=== PATIENT | female | born 1945 | race Caucasian/White ===

== ENCOUNTER 2017-02-02 07:31 | Inpatient (IN) | payer OTHER ==
[2017-01-06 13:26] VITALS: BMI 25.0
--- NOTE | 2017-01-06 14:01 | PAT Medication Instructions ---
Service Date Jan 06, 2017. Current Home Medication List Calcium Carbonate (Caltrate 600), 1 TAB PO QAM Hydrochlorothiazide (Hydrochlorothiazide), 25 MG PO QAM Meloxicam (Mobic), 15 MG PO QAM Multiple Vitamins W/ Minerals (Alive Once Daily Womens U), 1 TAB PO QAM Simvastatin (Zocor), 40 MG PO QPM Medication Instructions For Your Scheduled Surgery - Hold the following medications 7 days prior to surgery per surgeon's instructions: Meloxicam (Mobic), 15 MG PO QAM - Hold the following medications the morning of surgery: Multiple Vitamins W/ Minerals (Alive Once Daily Womens U), 1 TAB PO QAM Calcium Carbonate (Caltrate 600), 1 TAB PO QAM Hydrochlorothiazide (Hydrochlorothiazide), 25 MG PO QAM - Take the following medications the morning of surgery with a sip of water OTHERWISE NOTHING TO EAT OR DRINK AFTER MIDNIGHT: Tylenol (may take if needed up to 4 hours prior to surgery) - Take the following medications as scheduled the night before surgery: Simvastatin (Zocor), 40 MG PO QPM Tylenol If you have any questions please call us at [phone] or [phone] or [phone]
--- NOTE | 2017-01-06 14:33 | DIAGNOSTIC IMAGING REPORT ---
CHEST 2 VIEWS ROUTINE CLINICAL HISTORY: pat preoperative evaluation COMPARISON STUDY: No previous studies for comparison. FINDINGS: The bones soft tissues and hemidiaphragms are normal. The cardiomediastinal silhouette is normal. The lungs are clear. The pulmonary vasculature is normal. IMPRESSION: Negative chest. The above report was generated using voice recognition software. It may contain grammatical, syntax or spelling errors. Electronically signed by: John March M.D. 01/06/2017 2:32 PM Dictated Date/Time: 01/06/2017 2:31 PM
[2017-01-06 14:57] LABS: BASO % 0.5 %; BASO ABS # 0.04 K/uL (0-0.2); COMPLETE YES; EOS % 4.2 %; HEMATOCRIT 40.4 % (37-47); IG% 0.2 %; LYMPH % 29.9 %; LYMPH ABS # 2.62 K/uL (1.2-3.4); MEAN CELL VOLUME 90.4 fL (80-100); MEAN CORPUSCULAR HEMOGLOBIN 31.5 pg (25-34); MEAN CORPUSCULAR HGB CONC 34.9 g/dl (32-36); MONO % 7.1 %; NEUT % 58.1 %; PLATELET COUNT 296 K/uL (130-400); RED BLOOD COUNT 4.47 M/uL (4.2-5.4); URINE APPEARANCE CLEAR (CLEAR); URINE BILIRUBIN NEG (NEG); URINE COLOR YELLOW; URINE NITRITE NEG (NEG); URINE SPECIFIC GRAVITY 1.017 (1.000-1.030); UROBILINOGEN NEG (NEG); WHITE BLOOD COUNT 8.75 K/uL (4.8-10.8); ZZUR CULT IF INDIC CLEAN CATCH NO
[2017-01-06 14:58] LABS: MANUAL MICROSCOPIC REQUIRED? NO; REVIEW REQ? NO
[2017-01-06 15:10] LABS: PROTHROMBIN TIME (PATIENT) 10.4 SECONDS (9.0-12.0)
[2017-01-06 16:01] LABS: BUN/CREATININE RATIO 15.5 (10-20); CALCIUM 9.5 mg/dl (8.5-10.1); CREATININE 0.84 mg/dl (0.60-1.20); POTASSIUM 3.7 mmol/L (3.5-5.1)
[2017-01-07 06:58] LABS: ESTIMATED AVERAGE GLUCOSE 137 mg/dl; HA1C FLAG Normal (Normal)
--- NOTE | 2017-02-01 18:25 | HISTORY & PHYSICAL EXAMINATION ---
DATE OF ADMISSION: 02/02/2017 CHIEF COMPLAINT: Chronic left knee pain. HISTORY OF PRESENT ILLNESS: This is a 71-year-old female patient of Dr. Smith'julianne complaining of chronic left knee pain, longstanding, now progressively getting worse. The patient has been diagnosed with end-stage osteoarthritis per clinical and radiographic exams. The patient has failed conservative treatment including intraarticular injections, anti-inflammatories and the use of a cane and a walker. The patient has increased pain with weightbearing activities and her pain does interfere with her activities of daily living. PAST MEDICAL HISTORY: Hypertension, hypercholesterolemia, and basal cell carcinoma. SOCIAL HISTORY: Nonsmoker, nondrinker. FAMILY HISTORY: Noncontributory. REVIEW OF SYSTEMS: Chronic left knee pain, otherwise denies any shortness of breath, chest pain, nausea, vomiting or any other joint complaints. MEDICATIONS: Simvastatin 40 mg daily, hydrochlorothiazide 25 mg daily, Meloxicam 50 mg daily, Aleve daily, Caltrate daily. PAST SURGICAL HISTORY: Breast tumor, , bunion, gallbladder, basal cell carcinoma, right knee and left knee. ALLERGIES: NAPROSYN, SULFA, PENICILLIN, VOLTAREN. PHYSICAL EXAMINATION: GENERAL: Well-developed, well-nourished 71-year-old female in no acute distress. She is alert and oriented x3 and pleasant. HEENT: Normocephalic, atraumatic. Extraocular motions are intact. Pupils are equal and reactive to light. HEART: Regular rate and rhythm with a 1/6 murmur appreciated. LUNGS: Clear. ABDOMEN: Soft and nontender, bowel sounds are present. EXTREMITIES: Left knee reveals crepitation with passive range of motion. She has a limited range of motion with negative 10, extension to 125 degrees of flexion. She has a varus deformity. She has medial joint line tenderness. She has 5/5 strength. NEUROLOGIC: Neurovascularly, she is intact in her left lower extremity. DIAGNOSES: Left knee end-stage osteoarthritis, hypertension, hypercholesterolemia, history of basal cell carcinoma. PLAN: The patient was advised of her diagnoses. Indications, risks, benefits, and postop course have all been reviewed. The patient wishes to proceed with a left total knee arthroplasty. Necessary consent forms, preoperative testing and clearances will be obtained.
[2017-02-02] VITALS (8 sets, daily range): BP systolic 114–159; BP diastolic 69–86; PULSE 85–101; TEMP 36.5–36.8; O2SAT 96–100; Ht 162.6 cm; Wt 68.2 kg
[~2017-02-02] VITALS: Ht 162.6 cm; Wt 68.2 kg
[~2017-02-02 07:31] MED LIST: ACETAMINOPHEN 500 MG TAB PO SCH; BUPIVACAINE 0.25% 30 ML VIAL ONE; BUPIVACAINE 0.5 % 5 MG/1 ML PF 10ML VIAL ONE; CALCTAB5 PO; DEXAMETHASONE 4 MG TAB PO SCH; EpINEphrine INJ 1MG/ML AMP 1 MG/ML AMP ONE; FAMOTIDINE 20 MG TAB PO SCH; GABAPENTIN 300 MG CAP PO SCH; HYDR25TA5 PO; LACTATED RINGER'S 1000ML 1,000 ML IV SCH; LACTATED RINGER'S 1000ML 500 ML IV ONE; LACTATED RINGER'S 1000ML IV SCH; MELO7.5T5 PO; METOCLOPRAMIDE HCL 10 MG TAB PO SCH; MULT-1044 PO; ROPIVACAINE 5MG/ML 30 ML 150 MG, BUPIVACAINE/EPINEPHR 0.5% MPF 30 ML, KETOROLAC TROMETH... INFIL SCH; SIMV40TA2 PO; VANCOMYCIN 1GM/270ML NSS 270 ML IV SCH
[2017-02-02] MEDS ORDERED: LIDOCAINE HCL 2% 2 ML VIAL (20MG/ML) ONE (07:39)
[2017-02-02] MEDS ORDERED: FENTANYL CITRATE INJ 50 MCG/1 ML 2 ML VIAL ONE (07:39)
[2017-02-02] MEDS ORDERED: MIDAZOLAM HCL 1 MG/ML 2ML VIAL ONE ×2 (07:39→09:56)
[2017-02-02] MEDS ORDERED: ONDANSETRON INJ 2 MG/ML 2 ML VIAL ONE (07:40)
[2017-02-02] MEDS ORDERED: PROPOFOL IV EMULSION 10 MG/ML 20 ML VIAL IV ONE ×2 (07:40→10:50)
[2017-02-02] MEDS ORDERED: EpHEDrine SULFATE INJ 50 MG/ML AMP IV PRN (08:15)
[2017-02-02] MEDS ORDERED: MEPERIDINE HCL 25 MG/ML CARP IV PRN (08:15)
[2017-02-02] MEDS ORDERED: LABETALOL HCL IV 5 MG/ML 20ML IV PRN (08:15)
[2017-02-02] MEDS ORDERED: PHENYLEPHRINE 100MCG/ML 5ML SYR IV PRN (08:15)
[2017-02-02] MEDS ORDERED: HYDROmorphone INJ 2 MG/ML SYR/VIAL IV PRN (08:15)
[2017-02-02] MEDS ORDERED: ONDANSETRON INJ 2 MG/ML 2 ML VIAL IV PRN ×2 (08:15→12:15)
[2017-02-02] MEDS ORDERED: FLUMAZENIL 0.1 MG/1 ML 10 ML VIAL IV PRN (08:15)
[2017-02-02] MEDS ORDERED: NALOXONE HCL 0.4 MG/1 ML VIAL/CARP IV PRN (08:15)
[2017-02-02] MEDS ORDERED: ATROPINE SULFATE 0.1 MG/ML 5ML SYR IV PRN (08:15)
[2017-02-02] MEDS ORDERED: FENTANYL CITRATE INJ 50 MCG/1 ML 2 ML VIAL IV PRN (08:15)
[2017-02-02] MEDS: TRANEXAMIC ACID INJ 1,000 MG in SODIUM CHLORIDE 0.9% 100ML 100 ML IV SCH ×2 (09:50→15:26)
--- NOTE | 2017-02-02 09:51 | History & Physical Bridge Note ---
H&P Re-Evaluation Bridge Note: I have examined the patient, reviewed the History & Physical and in the interval since the performance of the History & Physical I have noted the following changes of clinical significance: No changes noted
[2017-02-02] MEDS ORDERED: ORTHO JOINT ANESTHETIC ONE (09:53)
[2017-02-02] MEDS ORDERED: POVIDONE-IODINE OP SOLN 30 ML BTL ONE (09:53)
[2017-02-02] MEDS ORDERED: BACITRACIN 50000 UNIT VIAL ONE (09:53)
[2017-02-02] MEDS ORDERED: EpHEDrine SULFATE INJ 50 MG/ML AMP ONE (10:23)
[2017-02-02] MEDS ORDERED: SOD PHOSPHATE/SOD BIPHOSPHATE ENEMA 132 ML BTL PR PRN (12:15)
[2017-02-02] MEDS ORDERED: ZOLPIDEM TARTRATE 5 MG TAB PO PRN (12:15)
[2017-02-02] MEDS ORDERED: BISACODYL 10 MG SUPP PR PRN (12:15)
[2017-02-02] MEDS ORDERED: MAGNESIUM HYDROXIDE SUSP 30 ML UDC PO PRN (12:15)
[2017-02-02] MEDS ORDERED: TRAMADOL HCL 50 MG TAB PO PRN (12:15)
[2017-02-02] MEDS ORDERED: ALUMINUM/MAGNESIUM/SIMETH (MAALOX MAX) 30 ML UDC PO PRN (12:15)
[2017-02-02] MEDS ORDERED: METOCLOPRAMIDE HCL INJ 5 MG/ML 2 ML VIAL IV PRN (12:15)
--- NOTE | 2017-02-02 12:35 | [facility] Operative Report ---
Operative Report Operative Date Feb 02, 2017. Pre-Operative Diagnosis DEGENERATIVE JOINT DISEASE LEFT KNEE Post-Operative Diagnosis same Procedure(s) Performed Left total knee arthroplasty Surgeon DR. Yesika JOSÉ Veneer Sheet Repairer Surgeon(s) Raymundo Gould PAC Estimated Blood Loss 5ml Findings Medial compartment [id number] intra-articular adhesions from prior arthroscopic surgeries and partial medial meniscectomy Specimens LEFT KNEE BONE AND TISSUE Drains 2 Hemovac Anesthesia spinal sedation adductor nerve block orhtomix Complication(s) None Disposition Recovery Room / PACU Indications 71-year-old female with progressive osteoarthritis left knee failed conservative management and now [id number] medial compartment Description of Procedure The patient was taken to the operating room and anesthetized under spinal anesthetic adductor nerve block. Patient was placed supine on the the operating table. A pneumatic tourniquet was placed about the left upper thigh. The knee exam demonstrated stiff knee laxity of lateral collateral ligament but tight MCL -10 through 125 range of motion. An anterior longitudinal incision was made across the knee. Skin flaps were elevated. An incision was made into the medial retinaculum and extended up into the mid third of the quadriceps tendon and extended down to the tibial tubercle. Intra-articular findings demonstrated some synovial adhesions from old surgery. A previous partial meniscectomy medially. [id number] in medial compartment with a varus knee.. The knee was exposed by excising cruciate ligaments and menisci. The infrapatellar fat pad was resected. The fat pad over the anterior femur at the upper aspect of the articular surface was resected for placement of the component in that area. A subperiosteal peel lateral release was performed around the patella. The synovial adhesions were resected with a minor partial synovectomy. The Mckinley and nephew journey 2.0 total knee arthroplasty system was utilized for the procedure. The custom femoral cutting guide was pinned in position. The distal femoral cut was made. The size 4, 5 in 1 cutting block was placed. The anterior posterior and chamfer cuts were made. The knee was extended and a free hand cut technique was performed to the patella. The patella with the synovial measured and the width was reproduced using a 32 patella component. 3 drill holes are made for the patella component pegs. The tibia was then subluxed. The custom tibial cutting block was pinned in position and the proximal tibial cut was made with the oscillating saw. The size 2 tibial trial was externally rotated in line with the tibial tubercle and pinned in position. The punch for the stem was used and the collet was placed. Tibial trials were used for the insert. The MCL was tight and she had some laxity of the LCL with valgus stress so in order to balance the ligaments fully, the trial was removed and I used an 11 blade to piecrust the MCL which balanced ligaments. There is still some asymmetry between extension and flexion tightness of the MCL with a little bit of laxity in flexion now since the release so I chose to use a constrained 12 trial which gave complete balance of ligaments through full range of motion . Patella tracking was assessed with range of motion. The patella tracked centrally. The trials were removed. The Orthomix anesthetic cocktail was injected per protocol. The cut bone surfaces and soft tissue were copiously irrigated with antibiotic solution with bacitracin. The final components were cemented with Simplex cement. The final components were Mckinley and nephew journey 2.0 Oxinium for left posterior stabilized femoral component and the 2 left tibial component and the 12 constrained posterior stabilized poly-and the 32 patella.. While the cement cured the Betadine soak was used per protocol. When the cement cured the knee was copiously irrigated with pulsatile lavage antibiotic solution with bacitracin. 2 drains were brought out laterally connected to Hemovac. The quadriceps tendon and medial retinaculum were closed with interrupted [id number] #1 Vicryl sutures. The knee was taken through full range of motion and repair was secure. The subcutaneous tissues were closed with 2-0 Vicryl sutures. The skin was closed with adolfo. A Silverlon sterile dressing was applied. The tourniquet was let down and the patient had good capillary refill to the extremity. The patient tolerated the procedure well. My physician communication assistant [John BLAKE] assisted in the procedure including prepping draping leg positioning soft tissue retraction instrument management and assisted in the closure ,dressings application and will participate in postoperative care the patient. I attest to the content of the Intraoperative Record and any orders documented therein. Any exceptions are noted below.
[2017-02-02] MEDS ORDERED: METOPROLOL TARTRATE 1 MG/ML VIAL ONE (12:45)
[2017-02-02] MEDS ORDERED: METOPROLOL TARTRATE 1 MG/ML VIAL IV STA (12:45)
--- NOTE | 2017-02-02 12:49 | DIAGNOSTIC IMAGING REPORT ---
LEFT KNEE 2 VIEWS History: Left total knee arthroplasty. Degenerative arthritis. Postop. FINDINGS: The patient is status post a left total knee arthroplasty. The hardware is intact. No fracture or dislocation. Skin adolfo and surgical drains are in place. IMPRESSION: Left total knee arthroplasty. No evidence for hardware complication. Electronically signed by: Slade Higgins M.D. 02/02/2017 12:48 PM Dictated Date/Time: 02/02/2017 12:47 PM
--- NOTE | 2017-02-02 13:48 | Anesthesiology Progress Note ---
Anesthesia Post Op Note Date & Time Feb 02, 2017 at 13:48 Vital Signs Pain Intensity: 0 Vital Signs Past 12 Hours Date Time Temp Pulse Resp B/P (MAP) Pulse Ox O2 Delivery O2 Flow Rate FiO2 02/02/17 13:30 94 15 122/59 97 Nasal Cannula 2 02/02/17 13:15 36.2 92 16 121/64 99 Nasal Cannula 2 02/02/17 13:05 89 17 120/65 97 Nasal Cannula 2 02/02/17 12:55 89 17 121/67 98 Nasal Cannula 2 02/02/17 12:48 105 125/66 02/02/17 12:45 90 18 129/66 98 Nasal Cannula 2 02/02/17 12:35 102 14 122/66 99 Nasal Cannula 2 02/02/17 12:25 101 18 123/64 100 Nasal Cannula 2 02/02/17 12:15 103 18 122/63 100 Oxymask 10 02/02/17 12:08 36.8 103 14 117/58 100 Oxymask 10 02/02/17 08:18 36.5 85 18 159/86 98 Room Air Notes Mental Status: alert / awake / arousable, participated in evaluation Pt Amnestic to Procedure: Yes Nausea / Vomiting: adequately controlled Pain: adequately controlled Airway Patency, RR, SpO2: stable & adequate BP & HR: stable & adequate Hydration State: stable & adequate Anesthetic Complications: no major complications apparent
[2017-02-02] MEDS ORDERED: MoRPHine SULFATE 4 MG/ML 1 ML CARP\\VIAL IV PRN (14:45)
[2017-02-02] MEDS ORDERED: D5W AND 1/2NSS + 20MEQ KCL 1,000 ML IV SCH (15:00)
[2017-02-02] MEDS: ACETAMINOPHEN 500 MG TAB PO SCH ×2 (15:47→22:36)
--- NOTE | 2017-02-02 16:43 | Medical Consult ---
Consultation Date of Consultation: Feb 02, 2017 . Attending Physician: Gera Smith M.D. . Reason for Consultation: Perioperative medical management . History of Present Illness 71-year-old female from [place], followed by Dr. Cespedes for primary care. History of hypertension, dyslipidemia, and other problems noted below. Left total knee arthroplasty performed today by Dr. Smith. Doing well postoperatively. No chest pain. No cough or dyspnea. No nausea or vomiting. Having some urinary frequency and incontinence. Postop pain well-controlled. . Past Medical/Surgical History Chronic and Resolved Medical Problems: (1) Dyslipidemia Status: Chronic (2) History of pseudogout Status: Chronic (3) Hypertension Status: Chronic (5) Left knee DJD Status: Chronic (6) Vitamin D deficiency Status: Chronic Surgical Problems: (1) Status post arthroscopic knee surgery Status: Chronic (2) Status post section Status: Chronic . Family History FATHER Lung cancer MOTHER Skin cancer Stroke Dementia BROTHER Bladder cancer SISTER Hypercholesterolemia Social History Smoking Status: Never Smoker Alcohol Use: none Allergies Coded Allergies: Diclofenac (Verified Allergy, Unknown, STOOLS TURNED BLACK, GI UPSET, 04/09) Penicillins (Verified Allergy, Unknown, "OCCURED A CHILD", 02/02/17) Sulfa Antibiotics (Verified Allergy, Unknown, RASH, HIVES, facial swelling (as a child), 02/02/17) Naproxen (Verified Adverse Reaction, Unknown, GI UPSET AFTER PROLONGED USE , 02/02/17) Home Medications Reported Home Medications Medications Dose Route/Sig Max Daily Dose Days Date Category Caltrate 600 (Calcium Carbonate) 1,500 Mg Tab 1 Tab PO QAM 01/06/17 Reported Alive Once Daily Womens U (Multiple Vitamins W/ Minerals) 1 Tab Tab 1 Tab PO QAM 01/06/17 Reported Mobic (Meloxicam) 7.5 Mg Tab 15 Mg PO QAM 01/06/17 Reported Hydrochlorothiazide 25 Mg Tab 25 Mg PO QAM 01/06/17 Reported Zocor (Simvastatin) 40 Mg Tab 40 Mg PO QPM 01/06/17 Reported Current Inpatient Medications Current Inpatient Medications Medications (Trade) Dose Ordered Sig/Crow Route Start Time Stop Time Status Last Admin Dose Admin Lactated Ringer's 1,000 ml @ 15 mls/hr Q24H IV 02/02/17 06:00 02/03/17 05:59 Lactated Ringer's 1,000 ml @ 60 mls/hr [id number] IV 02/02/17 06:00 02/02/17 22:39 Vancomycin HCl 270 ml @ 125 mls/hr PREOP IV 02/02/17 06:00 02/02/17 18:00 02/02/17 07:56 125 MLS/HR Acetaminophen (Tylenol Tab) 1,000 mg PREOP PO 02/02/17 06:00 02/02/17 18:00 02/02/17 08:44 1,000 MG Dexamethasone (Decadron Tab) 8 mg PREOP PO 02/02/17 06:00 02/02/17 18:00 02/02/17 08:45 8 MG Famotidine (Pepcid Tab) 20 mg PREOP PO 02/02/17 06:00 02/02/17 18:00 02/02/17 08:44 20 MG Gabapentin (Neurontin Cap) 300 mg PREOP PO 02/02/17 06:00 02/02/17 18:00 02/02/17 08:45 300 MG Metoclopramide HCl (Reglan Tab) 10 mg PREOP PO 02/02/17 06:00 02/02/17 18:00 02/02/17 08:45 10 MG Tranexamic Acid 1000 mg/Sodium Chloride 110 ml @ 660 mls/hr TODAY@06,0630 IV 02/02/17 06:00 02/02/17 18:00 02/02/17 09:50 660 MLS/HR Hydrochlorothiazide (Hydrochlorothiazide Tab) 25 mg QAM PO 02/03/17 09:00 03/05/17 08:59 Simvastatin (Zocor Tab) 40 mg QPM PO 02/02/17 21:00 03/04/17 20:59 Calcium/Vitamin D (Caltrate Plus Tab) 1 tab QAM PO 02/03/17 09:00 03/05/17 08:59 Potassium Chloride/Dextrose/ Sod Cl 1,000 ml @ 100 mls/hr Q10H IV 02/02/17 15:00 02/03/17 12:08 02/02/17 15:47 100 MLS/HR Oxycodone HCl (Roxicodone Immediate Rel Tab) 1 TABLET FOR PAIN RATING... Q4H PRN PO 02/02/17 12:15 02/16/17 12:14 Morphine Sulfate (MoRPHine SULFATE INJ) 2 mg Q2H PRN IV 02/02/17 12:15 02/16/17 12:14 Acetaminophen (Tylenol Tab) 1,000 mg Q8H PO 02/02/17 15:00 03/04/17 14:59 02/02/17 15:47 1,000 MG Magnesium Hydroxide (Milk Of Magnesia Susp) 30 ml Q6H PRN PO 02/02/17 12:15 03/04/17 12:14 Bisacodyl (Dulcolax Supp) 10 mg DAILY PRN WI 02/02/17 12:15 03/04/17 12:14 Sodium Biphosphate/ Sodium Phosphate (Fleet Enema) 132 ml DAILY PRN WI 02/02/17 12:15 03/04/17 12:14 Docusate Sodium (coLACE CAP) 100 mg BID PO 02/02/17 21:00 03/04/17 20:59 Diphenhydramine HCl (Benadryl Cap) 25 mg Q8H PRN PO 02/02/17 12:15 03/04/17 12:14 Al Hydrox/Mg Hydrox/Simethicone (Maalox Max Susp) 15 ml Q4H PRN PO 02/02/17 12:15 03/04/17 12:14 Zolpidem Tartrate (Ambien Tab) 5 mg HSZ PRN PO 02/02/17 12:15 03/04/17 12:14 Multivitamins (Multivitamin Tab) 1 tab QAM PO 02/03/17 09:00 03/05/17 08:59 Ondansetron HCl (Zofran Inj) 4 mg Q6H PRN IV 02/02/17 12:15 03/04/17 12:14 Metoclopramide HCl (Reglan Inj) 10 mg Q6H PRN IV 02/02/17 12:15 03/04/17 12:14 Pantoprazole Sodium (Protonix Tab) 40 mg QAM PO 02/03/17 09:00 03/05/17 08:59 Tramadol HCl (Ultram Tab) 1 tablet for pain rating... Q4H PRN PO 02/02/17 12:15 03/04/17 12:14 Aspirin (Ecotrin Tab) 81 mg BID PO 02/02/17 21:00 03/04/17 20:59 Vancomycin HCl 1000 mg/Sodium Chloride 270 ml @ 125 mls/hr 2000 ONCE IV 02/02/17 20:00 02/02/17 22:09 Morphine Sulfate (MoRPHine SULFATE INJ) 4 mg Q2H PRN IV 02/02/17 14:45 02/16/17 14:44 Review of Systems Constitutional: No fever, No weight loss Respiratory: No cough, No shortness of breath Cardiovascular: + edema (mild dependent), No chest pain, No palpitations Abdomen: + constipation, No nausea, No vomiting, No GI bleeding Musculoskeletal: + joint pain Genitourinary - Female: + urinary urgency, No dysuria Endocrine: No excessive thirst, No excessive urination Hematologic / Lymphatic: No abnormal bleeding/bruising Physical Exam Date Time Temp Pulse Resp B/P (MAP) Pulse Ox O2 Delivery O2 Flow Rate FiO2 02/02/17 15:38 36.8 97 17 132/69 (90) 99 Room Air 02/02/17 14:49 96 18 123/71 (88) 99 Nasal Cannula 2.0 02/02/17 14:10 36.6 94 16 114/72 (86) 99 Nasal Cannula 2.0 02/02/17 13:40 36.8 94 16 119/72 (88) 100 Nasal Cannula 2.0 02/02/17 13:40 Nasal Cannula 2.0 02/02/17 13:30 94 15 122/59 97 Nasal Cannula 2 02/02/17 13:15 36.2 92 16 121/64 99 Nasal Cannula 2 02/02/17 13:05 89 17 120/65 97 Nasal Cannula 2 02/02/17 12:55 89 17 121/67 98 Nasal Cannula 2 02/02/17 12:48 105 125/66 02/02/17 12:45 90 18 129/66 98 Nasal Cannula 2 02/02/17 12:35 102 14 122/66 99 Nasal Cannula 2 02/02/17 12:25 101 18 123/64 100 Nasal Cannula 2 02/02/17 12:15 103 18 122/63 100 Oxymask 10 02/02/17 12:08 36.8 103 14 117/58 100 Oxymask 10 02/02/17 08:18 36.5 85 18 159/86 98 Room Air General Appearance: WD/WN, no apparent distress Head: normocephalic, atraumatic Eyes: normal inspection, PERRL, EOMI, sclerae normal (conjunctivae and lids normal) ENT: normal ENT inspection, hearing grossly normal, pharynx normal Neck: supple, no adenopathy, thyroid normal, no JVD, trachea midline Respiratory/Chest: lungs clear, no respiratory distress, no accessory muscle use Cardiovascular: regular rate, rhythm, no edema, no gallop, no JVD, normal peripheral pulses, + systolic murmur (2/6 systolic murmur at base) Abdomen/GI: normal bowel sounds, non tender, soft, no organomegaly, no pulsatile mass Extremities/Musculoskelatal: no calf tenderness, no pedal edema, + pertinent finding (left leg wrapped with elastic bandage; SCD applied to right lower extremity) 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 as tested (PERRL, EOMI, no facial palsy, no dysarthria), alert, normal mood/affect, oriented x 3 Skin: normal color, warm/dry, no rash Lymphatic: no adenopathy (cervical) Laboratory Results Preoperative testing 01/06/17: Item Value Date Time Hemoglobin 14.1 g/dL 01/06/17 1410 White Blood Count 8.75 K/uL 01/06/17 1410 Platelet Count 296 K/uL 01/06/17 1410 Prothrombin Time 10.4 SECONDS 01/06/17 1410 Activated Partial Thromboplast Time 25.9 SECONDS 01/06/17 1410 Sodium Level 138 mmol/L 01/06/17 1410 Potassium Level 3.7 mmol/L 01/06/17 1410 Chloride Level 100 mmol/L 01/06/17 1410 Carbon Dioxide Level 32 mmol/L 01/06/17 1410 Blood Urea Nitrogen 13 mg/dl 01/06/17 1410 Creatinine 0.84 mg/dl 01/06/17 1410 Random Glucose 209 mg/dl H 01/06/17 1410 Hemoglobin A1c 6.4 % H 01/06/17 1410 Urine Color YELLOW 01/06/17 1410 Urine Appearance CLEAR 01/06/17 1410 Urine pH 7.0 01/06/17 1410 Urine Ketones NEG 01/06/17 1410 Urine Glucose (UA) TRACE 01/06/17 1410 Urine Protein NEG 01/06/17 1410 Urine Occult Blood NEG 01/06/17 1410 Urine Nitrite NEG 01/06/17 1410 Urine Bilirubin NEG 01/06/17 1410 Urine Urobilinogen NEG 01/06/17 1410 Urine Leukocyte Esterase NEG 01/06/17 1410 CHEST 2 VIEWS ROUTINE 01/06/17 FINDINGS: The bones soft tissues and hemidiaphragms are normal. The cardiomediastinal silhouette is normal. The lungs are clear. The pulmonary vasculature is normal. IMPRESSION: Negative chest. The above report was generated using voice recognition software. It may contain grammatical, syntax or spelling errors. Electronically signed by: John March M.D. 01/06/2017 2:32 PM Dictated Date/Time: 01/06/2017 2:31 PM Last 24 Hours Test 02/02/17 08:09 Bedside Glucose 119 mg/dl ' Assessment & Plan S/P TKA Doing well postoperatively. HYPERTENSION Hemodynamically stable postoperatively. Continue hydrochlorothiazide. DYSLIPIDEMIA Continue simvastatin. IMPAIRED GLUCOSE TOLERANCE Random glucose on 01/06/17 was 209. Hemoglobin A1c on the same day was 6.4. Fingerstick blood glucose this morning was 119. Results are consistent with impaired glucose tolerance. Patient not aware of any prior history of hyperglycemia. Patient received dexamethasone this morning. Anticipate elevated blood sugars due to physiologic stress, inactivity, steroids. Monitor blood sugars and initiate insulin coverage if blood sugars are significantly elevated. Outpatient follow-up with PCP. VTE PROPHYLAXIS Per Orthopedic protocol. Thank you for this consultation. We will follow the patient with you during their hospital stay. Dr. Alberto will be rounding starting on 02/03/17. You can reach a member of the [facility] Medicine Team 14/11 via pager @ [phone]. You can reach me via cell @ [phone]. . Additional Copies To Glenn Cespedes
[2017-02-02] MEDS ORDERED: VANCOMYCIN INJ 1,000 MG in SODIUM CHLORIDE 0.9% 250ML 250 ML IV ONE (20:00)
[2017-02-02] MEDS: SIMVASTATIN 40 MG TAB PO SCH (20:27)
[2017-02-02] MEDS: DOCUSATE SODIUM 100 MG CAP PO SCH (20:27)
[2017-02-02] MEDS: ASPIRIN 81 MG ECTAB PO SCH (20:28)
[2017-02-02] MEDS: OXYCODONE HCL IR 5 MG TAB (IMMEDIATE RELEASE) PO PRN (20:29)
[2017-02-02] MEDS ORDERED: INSULIN GLARGINE SOLOSTAR 100 UNITS/ML 3 ML PEN SC ONE (21:30)
[2017-02-02] MEDS: INSULIN ASPART 100 UNITS/ML 3 ML PEN SC SCH (21:43)
[2017-02-02] MEDS: SODIUM CHLORIDE 0.9% 1000ML 1,000 ML IV SCH (22:35)
[2017-02-03] MEDS ORDERED: INSULIN ASPART 100 UNITS/ML 3 ML PEN SC ONE (01:00)
[2017-02-03 03:34] VITALS: BP 125/66; PULSE 89; TEMP 36.5; O2SAT 99
[2017-02-03] MEDS: OXYCODONE HCL IR 5 MG TAB (IMMEDIATE RELEASE) PO PRN ×4 (03:41→23:54)
[2017-02-03 06:18] LABS: HEMATOCRIT 31.2 % (37-47); MEAN CELL VOLUME 90.4 fL (80-100); MEAN CORPUSCULAR HEMOGLOBIN 30.7 pg (25-34); MEAN PLATELET VOLUME 9.6 fL (7.4-10.4); PLATELET COUNT 249 K/uL (130-400); RED BLOOD COUNT 3.45 M/uL (4.2-5.4); WHITE BLOOD COUNT 17.63 K/uL (4.8-10.8)
[2017-02-03] MEDS: ACETAMINOPHEN 500 MG TAB PO SCH ×3 (06:24→22:41)
[2017-02-03 06:49] LABS: BUN/CREATININE RATIO 22.7 (10-20); CALCIUM 8.1 mg/dl (8.5-10.1); CREATININE 0.62 mg/dl (0.60-1.20)
[2017-02-03 07:21] VITALS: BP 109/68; PULSE 79; TEMP 36.5; O2SAT 93
[2017-02-03] MEDS: PANTOprazole SOD 40 MG TAB PO SCH (07:49)
--- NOTE | 2017-02-03 07:55 | Anesthesiology Progress Note ---
Anesthesia Post Op Note Date & Time Feb 03, 2017 at 07:55 Vital Signs Pain Intensity: 5.0 Vital Signs Past 12 Hours Date Time Temp Pulse Resp B/P (MAP) Pulse Ox O2 Delivery O2 Flow Rate FiO2 02/03/17 07:21 36.5 79 18 109/68 (82) 93 Room Air 02/03/17 03:34 36.5 89 16 125/66 (85) 99 Room Air 02/03/17 00:00 Room Air 02/02/17 22:48 36.5 87 16 127/72 (90) 96 Room Air Notes Mental Status: alert / awake / arousable, participated in evaluation Pt Amnestic to Procedure: Yes Nausea / Vomiting: adequately controlled Pain: adequately controlled Airway Patency, RR, SpO2: stable & adequate BP & HR: stable & adequate Hydration State: stable & adequate Neuraxial Anesthesia: sensory block resolved Anesthetic Complications: no major complications apparent
--- NOTE | 2017-02-03 08:38 | Clinical Documentation Query ---
CLINICAL DOCUMENTATION QUERY Dr. LISA, In your clinical opinion is this patient being managed for: (x ) Acute blood loss anemia ( ) Not Agree ( ) Other explanation of clinical findings (Please Explain) ( ) Unable to determine (Please Define) ( ) Need to Discuss The medical record reflects the following clinical findings, treatment, and risk factors. Clinical Indicators: 71 yo female presenting for L TKA. Baseline Hgb 14.1, Hct 40.4, post operative Hgb 10.6, Hct 31.2. 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 Treatment: monitor CBC's, IV fluids Risk Factors:surgery and hemovac drainage Please clarify and document your clinical opinion in the progress notes and discharge summary. Terms such as "probable", "suspected", "likely", "questionable", "possible", or "still to be ruled out" are acceptable. IF IN AGREEMENT, YOU MUST DOCUMENT ABOVE DIAGNOSTIC STATEMENT IN DAILY PROGRESS NOTES AND DISCHARGE SUMMARY. This document is not part of the patient's record. Thank You, Bridget Ornelas RN [phone]
--- NOTE | 2017-02-03 08:39 | Clinical Documentation Query ---
CLINICAL DOCUMENTATION QUERY Dr. JOSÉ, In your clinical opinion is this patient being managed for: ( x ) Acute blood loss anemia ( ) Not Agree ( ) Other explanation of clinical findings (Please Explain) ( ) Unable to determine (Please Define) ( ) Need to Discuss The medical record reflects the following clinical findings, treatment, and risk factors. Clinical Indicators: 71 yo female presenting for L TKA. Baseline Hgb 14.1, Hct 40.4, post-operative Hgb 10.6, Hct 31.2. 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 Treatment: monitor CBC's, IV fluids Risk Factors:surgery and hemovac drainage Please clarify and document your clinical opinion in the progress notes and discharge summary. Terms such as "probable", "suspected", "likely", "questionable", "possible", or "still to be ruled out" are acceptable. IF IN AGREEMENT, YOU MUST DOCUMENT ABOVE DIAGNOSTIC STATEMENT IN DAILY PROGRESS NOTES AND DISCHARGE SUMMARY. This document is not part of the patient's record. Thank You, Bridget Ornelas RN [phone]
--- NOTE | 2017-02-03 08:42 | Orthopedic Progress Note ---
Orthopedic Progress Note Date of Service Feb 03, 2017. Subjective Post OP Day: 1 Reports: feeling well, pain controlled w PO medications, Denies: complaints, chest pain, SOB, nausea / vomiting, light headedness, calf pain Additional Notes: Sugars elevated, on insulin coverage per medicine. Objective Date Time Temp Pulse Resp B/P (MAP) Pulse Ox O2 Delivery O2 Flow Rate FiO2 02/03/17 07:45 Room Air 02/03/17 07:21 36.5 79 18 109/68 (82) 93 Room Air 02/03/17 03:34 36.5 89 16 125/66 (85) 99 Room Air 02/03/17 00:00 Room Air 02/02/17 22:48 36.5 87 16 127/72 (90) 96 Room Air 02/02/17 18:53 36.7 101 17 151/73 (99) 98 Room Air 02/02/17 16:40 36.6 97 17 130/72 (91) 100 Room Air 02/02/17 15:38 36.8 97 17 132/69 (90) 99 Room Air 02/02/17 14:49 96 18 123/71 (88) 99 Nasal Cannula 2.0 02/02/17 14:10 36.6 94 16 114/72 (86) 99 Nasal Cannula 2.0 02/02/17 13:40 36.8 94 16 119/72 (88) 100 Nasal Cannula 2.0 02/02/17 13:40 Nasal Cannula 2.0 02/02/17 13:40 Nasal Cannula 2.0 02/02/17 13:30 94 15 122/59 97 Nasal Cannula 2 02/02/17 13:15 36.2 92 16 121/64 99 Nasal Cannula 2 02/02/17 13:05 89 17 120/65 97 Nasal Cannula 2 02/02/17 12:55 89 17 121/67 98 Nasal Cannula 2 02/02/17 12:48 105 125/66 02/02/17 12:45 90 18 129/66 98 Nasal Cannula 2 02/02/17 12:35 102 14 122/66 99 Nasal Cannula 2 02/02/17 12:25 101 18 123/64 100 Nasal Cannula 2 02/02/17 12:15 103 18 122/63 100 Oxymask 10 02/02/17 12:08 36.8 103 14 117/58 100 Oxymask 10 Laboratory Results 24 Hours: Test 02/03/17 05:38 Hematocrit 31.2 % Hemoglobin 10.6 g/dL Assessment & Plan Assessment: POD #1, Left TKA Plan: PT/ OT DVT proph- ASA D/C planning- home w oppt as per medicine Inhouse Planning Pain Management: Ultram, Morphine, PO Tylenol, Oxy IR DVT Prophylaxis: TEDs, SCDs, ASA Discharge Planning Discharge Planning: home with oppt Pain Management: PO Tylenol, Oxy IR DVT Prophylaxis: TEDs, ASA Therapy: Physical Therapy, Occupational Therapy
--- NOTE | 2017-02-03 08:43 | Discharge Instructions ---
Discharge Instructions Date of Service Feb 03, 2017. Admission Reason for Admission: Left Knee Degenerative Joint Disease Discharge Discharge Diagnosis / Problem: Left TKA Discharge Goals Goal(s): Improve function Activity Recommendations Activity Limitations: as noted below . Instructions / Follow-Up Instructions / Follow-Up ACTIVITY RECOMMENDATIONS: SELF CARE INSTRUCTIONS AFTER TOTAL KNEE REPLACEMENT A. You may need to continue a physical therapy program after discharge from the hospital. There are several options available to you. Your doctor will assist you in selecting the best one for you. 1. An out-patient facility 2 to 3 times a week for therapy or home therapy. 2. Continue working on all exercises taught to you in the hospital. Your goals should be to increase bending of your knee to 90 degrees and beyond and to fully straighten your knee. B. You may progress at your own pace from walking with a walker or crutches to a cane; then to no assistive devices. C. Make walking a part of your daily routine. Be up as much as comfortable with rest periods throughout the day. Rest with leg elevation is very important. Use the ice wrap frequently for the first 3-4 weeks. D. There are no restrictions on activities. 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 E. Wear the long elastic stockings (DAVID hose) 20 hours a day for 2 weeks after surgery. They can be removed several times a day for laundering and for a bath. F. You may shower, no tub baths until cleared by your doctor. SPECIAL CARE INSTRUCTIONS: VERY IMPORTANT TO READ AND REVIEW A. There are a few signs you need to watch for after you are home. Call [facility] if you notice any of the followin. Increased severe knee pain. Some pain is expected especially when you exercise. 2. Increased swelling in your leg or knee; pain or swelling of the calf muscle in either lower leg. 3. Any fluid drainage from the incision. 4. Shortness of breath or chest pain. B. Please call [facility] at if you have any concerns or questions about your operation or recovery. The doctor or his nurse will return your call promptly. C. You must take antibiotics before dental work, bladder, bowel or other surgery. Your doctor will provide you with a permanent care to carry describing this precaution. IMPORTANT: * REMEMBER TO TAKE ASPIRIN, 81 MG, TWICE DAILY FOR 4 WEEKS UNLESS OTHERWISE DIRECTED. THIS IS YOUR BLOOD THINNER. * HIGH RISK PATIENTS MAY BE PRESCRIBED A STRONGER BLOOD THINNER. THIS WILL BE PROVIDED AT DISCHARGE. * CALL IF INCREASED PAIN, REDNESS, DRAINAGE OR FEVER GREATER THAT 101. * WEAR DAVID HOSE 20 HOURS PER DAY FOR 2 WEEKS. * YOU MAY HAVE A LARGE BAND-AID LIKE DRESSING (SILVERON). THIS WILL REMAIN ON YOUR INCISION FOR 7 DAYS, THEN CAN BE REMOVED. IF INCISION IS LEAKING THROUGH DRESSING, CALL THE OFFICE . FOLLOW UP VISIT: If appointment is not already scheduled: Please call [facility] to make a follow-up appointment for 2 weeks after your surgery at . FOLLOW W PCP AN OUTPATIENT FOR SUGARS. Current Hospital Diet Patient's current hospital diet: Regular Diet Discharge Diet Recommended Diet: Regular Diet Procedures Procedures Performed: LEFT KNEE TOTAL ARTHROPLASTY Pending Studies Studies pending at discharge: no Laboratory Results Hemoglobin A1c Test 01/06/17 14:10 Range/Units Estimated Average Glucose 137 mg/dl Hemoglobin A1c 6.4 H 4.5-5.6 % Medical Emergencies . Who to Call and When: Medical Emergencies: If at any time you feel your situation is an emergency, please call 911 immediately. . Non-Emergent Contact Non-Emergency issues call your: Primary Care Provider . "Provider Documentation" section prepared by John Gould. . VTE Core Measure Inpt VTE Proph given/why not?: Other Anticoagulation (ASA), T.E.D. Stockings, SCD's [place] Drug Monitoring Program Search Results: patient reviewed within database, no issues identified
[2017-02-03] MEDS ORDERED: INSULIN GLARGINE SOLOSTAR 100 UNITS/ML 3 ML PEN SC SCH ×2 (09:00→21:00)
[2017-02-03] MEDS: DOCUSATE SODIUM 100 MG CAP PO SCH ×2 (09:02→20:58)
[2017-02-03] MEDS: MULTIVITAMIN TAB PO SCH (09:02)
[2017-02-03] MEDS: HYDROCHLOROTHIAZIDE 25 MG TAB PO SCH (09:02)
[2017-02-03] MEDS: CALCIUM 600MG + VIT D 400 IU TAB PO SCH (09:03)
[2017-02-03] MEDS: ASPIRIN 81 MG ECTAB PO SCH ×2 (09:03→20:58)
[2017-02-03] MEDS: INSULIN ASPART 100 UNITS/ML 3 ML PEN SC SCH ×4 (09:55→21:00)
[2017-02-03] MEDS: MoRPHine SULFATE 2 MG/ML CARP IV PRN ×2 (14:40→14:47)
[2017-02-03 15:42] VITALS: BP 126/72; PULSE 80; TEMP 36.8; O2SAT 97
--- NOTE | 2017-02-03 17:27 | Progress Note ---
Internal Med Progress Note Date of Service: Feb 03, 2017. Provider Documentation: SUBJECTIVE: resting comfortably afebrile ambulated ok has soreness at surgery site no sob OBJECTIVE: Vital Signs-as noted below Exam: General-alert and awake. Not in distress ENT-normal hearing Neck-no neck masses Lungs-cta b/l mild b/l wheezing present no crackles Heart-s1 and s2 heard regular rate and rhythm no murmurs Abdomen-soft bowel sounds present non tender no distension Extremities-no erythema Neuro-alert and awake moves extremities Lab data as noted below. ASSESSMENT & PLAN: S/P Left TKA doing fine post op management as per ortho HYPERTENSION on hydrochlorothiazide. stable will monitor. DYSLIPIDEMIA on simvastatin. IMPAIRED GLUCOSE TOLERANCE Random glucose on 01/06/17 was 209. Hemoglobin A1c on the same day was 6.4. on Lantus and iss will monitor close followup with pcp. VTE PROPHYLAXIS Per Orthopedic protocol. DISPOSITION per ortho Vital Signs: Date Time Temp Pulse Resp B/P (MAP) Pulse Ox O2 Delivery O2 Flow Rate FiO2 02/03/17 15:42 36.8 80 17 126/72 (90) 97 Room Air 02/03/17 07:45 Room Air 02/03/17 07:21 36.5 79 18 109/68 (82) 93 Room Air 02/03/17 03:34 36.5 89 16 125/66 (85) 99 Room Air 02/03/17 00:00 Room Air 02/02/17 22:48 36.5 87 16 127/72 (90) 96 Room Air 02/02/17 18:53 36.7 101 17 151/73 (99) 98 Room Air Lab Results: Results Past 24 Hours Test 02/02/17 20:55 02/03/17 01:13 02/03/17 05:38 02/03/17 09:19 Range/Units Bedside Glucose 252 131 206 70-90 mg/dl White Blood Count 17.63 4.8-10.8 K/uL Red Blood Count 3.45 4.2-5.4 M/uL Hemoglobin 10.6 12.0-16.0 g/dL Hematocrit 31.2 37-47 % Mean Corpuscular Volume 90.4 80-100 fL Mean Corpuscular Hemoglobin 30.7 25-34 pg Mean Corpuscular Hemoglobin Concent 34.0 32-36 g/dl RDW Standard Deviation 41.7 36.4-46.3 fL RDW Coefficient of Variation 12.6 11.5-14.5 % Platelet Count 249 130-400 K/uL Mean Platelet Volume 9.6 7.4-10.4 fL Sodium Level 139 136-145 mmol/L Potassium Level 4.0 3.5-5.1 mmol/L Chloride Level 108 98-107 mmol/L Carbon Dioxide Level 24 21-32 mmol/L Anion Gap 7.0 3-11 mmol/L Blood Urea Nitrogen 14 7-18 mg/dl Creatinine 0.62 0.60-1.20 mg/dl Est Creatinine Clear Calc Drug Dose 77.8 ml/min Estimated GFR () 104.4 Estimated GFR (Non- 90.1 BUN/Creatinine Ratio 22.7 10-20 Random Glucose 137 70-99 mg/dl Calcium Level 8.1 8.5-10.1 mg/dl Test 02/03/17 12:46 Range/Units Bedside Glucose 115 70-90 mg/dl
[2017-02-03] MEDS: SODIUM CHLORIDE 0.9% 1000ML 1,000 ML IV SCH (17:45)
[2017-02-03] MEDS: SIMVASTATIN 40 MG TAB PO SCH (20:56)
[2017-02-03 23:14] VITALS: BP 129/73; PULSE 84; TEMP 36.6; O2SAT 99
[2017-02-04] MEDS: ACETAMINOPHEN 500 MG TAB PO SCH (05:42)
[2017-02-04 06:16] LABS: HEMATOCRIT 31.4 % (37-47); MEAN CELL VOLUME 90.8 fL (80-100); MEAN CORPUSCULAR HEMOGLOBIN 30.6 pg (25-34); MEAN CORPUSCULAR HGB CONC 33.8 g/dl (32-36); PLATELET COUNT 240 K/uL (130-400); RED BLOOD COUNT 3.46 M/uL (4.2-5.4)
--- NOTE | 2017-02-04 06:35 | Orthopedic Progress Note ---
Orthopedic Progress Note Date of Service Feb 04, 2017. Subjective Post OP Day: 2 Reports: feeling well, pain controlled w PO medications, Denies: complaints, chest pain, SOB, nausea / vomiting, light headedness, calf pain Objective calves soft nontender, N/V intact, capillary refill less than 2 sec., dressing C /D/I, A&O x3, toes mobile Date Time Temp Pulse Resp B/P (MAP) Pulse Ox O2 Delivery O2 Flow Rate FiO2 02/04/17 00:00 Room Air 02/03/17 23:14 36.6 84 16 129/73 (91) 99 Room Air 02/03/17 16:10 Room Air 02/03/17 15:42 36.8 80 17 126/72 (90) 97 Room Air 02/03/17 07:45 Room Air 02/03/17 07:21 36.5 79 18 109/68 (82) 93 Room Air Laboratory Results 24 Hours: Test 02/04/17 05:20 Hematocrit 31.4 % Hemoglobin 10.6 g/dL Assessment & Plan Assessment: POD #2, Left TKA Plan: PT/ OT DVT proph- ASA D/C planning- home w oppt as per medicine Discharge Planning Discharge Planning: home with oppt Pain Management: PO Tylenol, Oxy IR DVT Prophylaxis: TEDs, ASA Therapy: Physical Therapy, Occupational Therapy
[2017-02-04 06:40] LABS: BUN/CREATININE RATIO 24.9 (10-20); CREATININE 0.74 mg/dl (0.60-1.20); POTASSIUM 3.5 mmol/L (3.5-5.1)
[2017-02-04 06:43] VITALS: BP 129/79; PULSE 85; TEMP 36.5; O2SAT 95
[2017-02-04] MEDS ORDERED: ONDA8TAB6 PO (06:50)
[2017-02-04] MEDS ORDERED: ULT50X PO (06:50)
[2017-02-04] MEDS ORDERED: ACET-24 PO (06:50)
[2017-02-04] MEDS ORDERED: ASPEC81 PO (06:50)
[2017-02-04] MEDS ORDERED: RXC5 PO (06:50)
[2017-02-04] MEDS ORDERED: CLC100 PO (06:50)
[2017-02-04 07:10] VITALS: BP 54/33; PULSE 53
[2017-02-04 07:12] VITALS: BP 84/58; PULSE 65
[2017-02-04 07:16] VITALS: BP 123/71
[2017-02-04] MEDS: CALCIUM 600MG + VIT D 400 IU TAB PO SCH (08:51)
[2017-02-04] MEDS: PANTOprazole SOD 40 MG TAB PO SCH (08:51)
[2017-02-04] MEDS: INSULIN ASPART 100 UNITS/ML 3 ML PEN SC SCH ×2 (08:51→13:00)
[2017-02-04] MEDS: MULTIVITAMIN TAB PO SCH (08:51)
[2017-02-04] MEDS: HYDROCHLOROTHIAZIDE 25 MG TAB PO SCH (08:52)
[2017-02-04] MEDS: DOCUSATE SODIUM 100 MG CAP PO SCH (09:27)
[2017-02-04] MEDS: ASPIRIN 81 MG ECTAB PO SCH (09:27)
[2017-02-04 11:30] VITALS: BP 142/83; PULSE 83; TEMP 36.6; O2SAT 97
[2017-02-04 13:08] VITALS: BP 123/71; PULSE 65; TEMP 36.5; O2SAT 95
[2017-02-04] MEDS: SODIUM CHLORIDE 0.9% 1000ML 1,000 ML IV SCH (13:40)
== END 2017-02-04 14:05 | disposition home or self-care (01) | DRG 470 ==
LOC: C.ACU 07:31 → C.3E 09:31 → ENRESERV 13:05 → CMPBEDREQ 14:09
PROVIDERS: ADMIT Orthopaedic Surgery Sports Medicine; ATTEND Orthopaedic Surgery Sports Medicine
PROC: 0SRD0J9 Replacement of Left Knee Joint with Synthetic Substitute, Cemented, Open Approach (ICD-10-PCS; principal; 2017-02-02 09:55)
DX: M17.12 Unilateral primary osteoarthritis, left knee (principal); I10 Essential (primary) hypertension; E78.5 Hyperlipidemia, unspecified; R73.02 Impaired glucose tolerance (oral); E78.00 Pure hypercholesterolemia, unspecified; Z85.828 Personal history of other malignant neoplasm of skin; Z80.1 Family history of malignant neoplasm of trachea, bronchus and lung; Z82.3 Family history of stroke; Z80.8 Family history of malignant neoplasm of other organs or systems; Z82.0 Family history of epilepsy and other diseases of the nervous system; Z80.52 Family history of malignant neoplasm of bladder